=== PATIENT | female | born 1950 | race Caucasian/White ===

== ENCOUNTER → 2024-08-31 | Outpatient (CLI) | payer MEDICARE, OTHER, SELFPAY ==
--- NOTE | 2024-08-31 | XR_ITS ---
Examination: Abdomen 2 views TECHNIQUE: AP upright AP supine abdomen 2 views Exam date and time: August 31, 2024 1257 hours INDICATIONS: Diarrhea abdominal discomfort beginning 6 months ago FINDINGS: Moderate to large amounts of stool throughout the colon No free air No soft tissue mass IMPRESSION: Moderate to large amounts of stool throughout the colon
== END | disposition home or self-care (01) ==
LOC: CDIM 12:24 → SLDO 12:39
PROVIDERS: PCP Family Medicine; Referring Provider Family Medicine; Visit Provider Radiology Diagnostic Radiology
DX: K59.00 Constipation, unspecified (principal); R19.7 Diarrhea, unspecified
CPT/HCPCS: 74019; 87015; 87045; 87046; 87177; 87209; 87899

== ENCOUNTER → 2024-10-23 | Outpatient (CLI) | payer MEDICARE, OTHER, SELFPAY ==
[2024-10-23 09:21] LABS: Glucose Estimated Average 108 mg/dL (80-131); Hemoglobin A1C 5.4 % Hgb (4.8-6.0)
[2024-10-23 09:30] LABS: Glucose,Fasting 89 mg/dL (74-106)
== END | disposition home or self-care (01) ==
PROVIDERS: PCP Family Medicine; Referring Provider Dermatology; Visit Provider Dermatology
DX: B37.2 Candidiasis of skin and nail (principal)
CPT/HCPCS: 36415; 82947; 83036